=== PATIENT | female | born 1995 | race Caucasian/White ===

== ENCOUNTER 2024-02-28 21:19 | Emergency (ER) | payer BC ==
[~2024-02-28] VITALS: Ht 180.3 cm; Wt 75.0 kg
[2024-02-28 21:27] VITALS: TEMP 98.3
[2024-02-28] MEDS ORDERED: CEPHALEXIN500 M1 PO (21:52)
[2024-02-28 21:57] VITALS: BP 126/85; PULSE 65
== END 2024-02-28 21:57 | disposition home or self-care (01) ==
LOC: COL.ER 21:19
DX: S61.012A Laceration without foreign body of left thumb without damage to nail, initial encounter (principal); W27.4XXA Contact with kitchen utensil, initial encounter; Y93.G3 Activity, cooking and baking; Y92.009 Unspecified place in unspecified non-institutional (private) residence as the place of occurrence of the external cause